=== PATIENT | male | born 1985 | race Two or more races ===

== ENCOUNTER 2018-07-21 20:12 | Emergency (ER) | payer OTHER ==
[~2018-07-21] VITALS: Ht 185.4 cm; Wt 154.7 kg
[2018-07-21 20:16] VITALS: BP 186/125
== END 2018-07-21 21:15 | disposition home or self-care (01) ==
LOC: ED 21:09
DX: G89.11 Acute pain due to trauma (principal); M25.561 Pain in right knee; F15.10 Other stimulant abuse, uncomplicated; X50.1XXA Overexertion from prolonged static or awkward postures, initial encounter; Y93.89 Activity, other specified; Y92.69 Other specified industrial and construction area as the place of occurrence of the external cause; Y99.8 Other external cause status
CPT/HCPCS: 93005; 99283